=== PATIENT | female | born 1960 | race Caucasian/White ===

== ENCOUNTER → 2017-03-16 | Outpatient (CLI) | payer OTHER ==
--- NOTE | 2017-03-16 16:07 | WOMENS IMAGING REPORT ---
EXAM DESCRIPTION: BILAT SCREENING MAMMO W/CAD COMPLETED DATE/TIME: 03/16/2017 9:58 am REASON FOR STUDY: ROUTINE SCREENING; Z12.31 Z12.31 ENCNTR SCREEN MAMMOGRAM FOR MALIGNANT NEOPLASM O F MIRELA COMPARISON: 07/02/2010 TECHNIQUE: Standard craniocaudal and mediolateral oblique views of each breast recorded using Flipswapa l acquisition. LIMITATIONS: None. FINDINGS: No masses, calcifications or architectural distortion. No areas of suspicion. Read with the assistance of CAD. .[facility] - R2 Cenova Version 1.3 .[facility] - R2 Cenova Version 1.3 .[facility] - R2 Cenova Version 2.4 .[facility] - R2 Cenova Version 2.4 .[facility] - R2 Financial Director Version 9.2 IMPRESSION: NORMAL MAMMOGRAM. BIRADS 1. BREAST DENSITY: a. The breasts are almost entirely fatty. BIRAD: 1 NEGATIVE RECOMMENDATION: ROUTINE SCREENING COMMENT: The patient has been notified of the results by letter per [place] requirements. Additional no tification policies are in place for contacting patient with suspicious or incomplete findings. Quality ID #[id number]: The [employer] recommends an annual screening mammogram for women aged 40 years or over. This facility utilizes a reminder system to ensure that all patients receive reminder letters, and/or direct phone calls for appointments. This includes reminders for routine scr eening mammograms, diagnostic mammograms, or other Breast Imaging Interventions when appropriate. Th is patient will be placed in the appropriate reminder system. The [employer] (A[employer]) has developed recommendations for screening MRI of the breast s in certain patient populations, to be used in conjunction with mammography. Breast MRI surveillanc e may be appropriate for women with more than 20% lifetime risk of developing breast cancer as deter mined by genetic testing, significant family history of the disease, or history of mantle radiation f or Hodgkins Disease. ACR Practice Guidelines 2008. TECHNICAL DOCUMENTATION: FINDING NUMBER: (1) ASSESSMENT: (1) JOB ID: [id number] [employer]- All Rights Reserved
== END ==
LOC: WI 09:20
DX: Z12.31 Encounter for screening mammogram for malignant neoplasm of breast (principal)
CPT/HCPCS: 77067; G0202

== ENCOUNTER 2018-04-30 16:40 | Emergency (ER) | payer SELFPAY ==
--- NOTE | 2018-04-30 16:58 | ER Document Report ---
ED Medical Screen (RME) - General Mode of Arrival: Ambulatory Information source: Patient TRAVEL OUTSIDE OF THE [place] IN LAST 30 DAYS: No - HPI Onset: Last week <VIDHYA WELDON - Last Filed: 04/30/18 17:24> <STEPHANIE RESENDIZ - Last Filed: 04/30/18 17:34> - General Chief Complaint: Leg Pain Stated Complaint: LEG PAIN Time Seen by Provider: 04/30/18 16:53 Notes: Patient is a 57 year old female with a history of cellulitis, psoriasis, MRSA presents to the emergency department complaining of right leg pain, swelling and redness onset 1 week ago. Patient states she began to pick at a plaque from her psoriasis and noticed the symptoms afterwards. Patient states she has been attempting to keep her foot elevated. Patient also complains of intermittent fevers. GENERAL: Alert, interacts well. No acute distress. HEAD: Normocephalic, Atraumatic. NECK: Full range of motion. Supple. Trachea midline. LUNGS: Clear to auscultation bilaterally, no wheezes, rales, or rhonchi. No respiratory distress. HEART: Regular rate and rhythm. No murmurs, gallops, or rubs. ABDOMEN: Soft, non-tender. Non-distended. Bowel sounds present in all 4 quadrants. EXTREMITIES: Moves all four extremities spontaneously. Swelling to the right lower extremity. Erythema to the RLE til about the calf anteriorly, some erythema posteriorly. Area of warmth on the right leg proximally. Dorsal aspect of right ankle contains erythema and plaquing which is tender to palpation. PSYCH: Normal affect, normal mood. I have greeted and performed a rapid initial assessment of this patient. A comprehensive ED assessment and evaluation of the patient, analysis of test results and completion of the medical decision making process will be conducted by additional ED providers. (VIDHYA WELDON) Patient does have a history of DVT previously. 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 Correction describe exam erythema to the right lower extremity goes to about residential up the west anteriorly. Right leg is warm but the distal aspect is hot to the touch. (STEPHANIE RESENDIZ) - Related Data Allergies/Adverse Reactions: Penicillins Allergy (Unknown, Verified 05/26/13 09:14) Past Medical History - Social History Chew tobacco use (# tins/day): No Frequency of alcohol use: None Drug Abuse: None - Past Medical History Cardiac Medical History: Reports: Hx Hypertension - not currently on meds Renal/ Medical History: Denies: Hx Peritoneal Dialysis GI Medical History: Reports: Hx Gastroesophageal Reflux Disease Past Surgical History: Reports: Hx Gastric Bypass Surgery, Hx Tonsillectomy, Hx Tubal Ligation - Immunizations Hx Diphtheria, Pertussis, Tetanus Vaccination: Yes <VIDHYA WELDON - Last Filed: 04/30/18 17:24> - Vital signs Vitals: Temp Pulse Resp BP Pulse Ox 98.0 F 94 22 H 142/80 H 96 04/30/18 16:46 04/30/18 16:46 04/30/18 16:46 04/30/18 16:46 04/30/18 16:46 Course - Laboratory Result Diagrams: 04/30/18 17:03 04/30/18 17:03 <VIDHYA WELDON - Last Filed: 04/30/18 17:24> - Laboratory Result Diagrams: 04/30/18 17:03 04/30/18 17:03 <STEPHANIE RESENDIZ - Last Filed: 04/30/18 17:34> - Vital Signs Vital signs: Temp Pulse Resp BP Pulse Ox 98.0 F 94 22 H 142/80 H 96 04/30/18 16:46 04/30/18 16:46 04/30/18 16:46 04/30/18 16:46 04/30/18 16:46 - Laboratory Laboratory results interpreted by me: 04/30/18 17:03 RDW 14.1 H Doctor's Discharge <VIDHYA WELDON - Last Filed: 04/30/18 17:24> <STEPHANIE RESENDIZ - Last Filed: 04/30/18 17:34> - Discharge Referrals: [facility] [Primary Care Provider] - Follow up as needed
[2018-04-30 17:20] LABS: ABSOLUTE BASOPHILS # (AUTO) 0.1 10^3/uL (0.0-0.2); ABSOLUTE EOSINOPHILS # (AUTO) 0.1 10^3/uL (0.0-0.6); ABSOLUTE LYMPHOCYTES (AUTO) 2.4 10^3/uL (0.5-4.7); ABSOLUTE MONOCYTES (AUTO) 0.8 10^3/uL (0.1-1.4); ABSOLUTE NEUT (AUTO) 4.7 10^3/uL (1.7-8.2); BASOPHILS % (AUTO) 0.7 % (0-2); EOSINOPHILS % (AUTO) 1.6 % (0-6); HEMATOCRIT 41.9 % (36.0-47.0); HEMOGLOBIN 14.1 g/dL (12.0-15.5); LYMPHOCYTES % (AUTO) 29.5 % (13-45); MEAN CORPUSCULAR HEMOGLOBIN 30.1 pg (27.0-33.4); MEAN CORPUSCULAR HGB CONC 33.7 g/dL (32.0-36.0); MEAN CORPUSCULAR VOLUME 90 fl (80-97); MONOCYTES % (AUTO) 9.7 % (3-13); PLATELET COUNT 217 10^3/uL (150-450); RED BLOOD COUNT 4.69 10^6/uL (3.72-5.28); RED CELL DISTRIBUTION WIDTH 14.1 % (11.5-14.0); SEGMENTED NEUTROPHILS % (AUTO) 58.5 % (42-78); TOTAL CELLS COUNTED % (AUTO) 100 %
[2018-04-30 17:24] LABS: INTERNATIONAL RATION (INR) 0.94
[2018-04-30 17:25] LABS: PARTIAL THROMBOPLASTIN TIME 30.1 SEC (23.5-35.8)
[2018-04-30 17:36] LABS: ALANINE AMINOTRANSFERASE 19 U/L (9-52); ALKALINE PHOSPHATASE 104 U/L (38-126); ANION GAP 12 (5-19); ASPARTATE AMINO TRANSFERASE 17 U/L (14-36); BILIRUBIN,DIRECT 0.3 mg/dL (0.0-0.4); BILIRUBIN,TOTAL 0.8 mg/dL (0.2-1.3); BLOOD UREA NITROGEN 24 mg/dL (7-20); CALCIUM 9.2 mg/dL (8.4-10.2); CARBON DIOXIDE 30 mmol/L (22-30); CHLORIDE 103 mmol/L (98-107); GLUCOSE 58 mg/dL (75-110); POTASSIUM 4.4 mmol/L (3.6-5.0); TOTAL PROTEIN 6.9 g/dL (6.3-8.2)
--- NOTE | 2018-04-30 18:11 | ER Document Report ---
ED General - General Mode of Arrival: Ambulatory Information source: Patient TRAVEL OUTSIDE OF THE [place] IN LAST 30 DAYS: No <VIDHYA WELDON - Last Filed: 04/30/18 18:12> - General Mode of Arrival: Ambulatory TRAVEL OUTSIDE OF THE [place] IN LAST 30 DAYS: No <ABELORIANASTEPHANIE - Last Filed: 04/30/18 20:00> - General Chief Complaint: Leg Pain Stated Complaint: LEG PAIN Time Seen by Provider: 04/30/18 16:53 Notes: Patient is a 57 year old female with a history of cellulitis, psoriasis, MRSA presents to the emergency department complaining of right leg pain, swelling and redness onset 1 week ago. Patient states she began to pick at a plaque from her psoriasis and noticed the symptoms afterwards. Patient states she has been attempting to keep her foot elevated. Patient also complains of intermittent fevers. Patient does have a history of DVT previously. 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 (VIDHYA WELDON) - Related Data Allergies/Adverse Reactions: Penicillins Allergy (Unknown, Verified 05/26/13 09:14) Past Medical History - General Information source: Patient - Social History Smoking Status: Never Smoker Chew tobacco use (# tins/day): No Frequency of alcohol use: None Drug Abuse: None Family History: Reviewed & Not Pertinent Patient has suicidal ideation: No Patient has homicidal ideation: No - Past Medical History Cardiac Medical History: Reports: Hx Hypertension GI Medical History: Reports: Hx Gastroesophageal Reflux Disease Past Surgical History: Reports: Hx Gastric Bypass Surgery, Hx Tonsillectomy, Hx Tubal Ligation - Immunizations Hx Diphtheria, Pertussis, Tetanus Vaccination: Yes <VIDHYA WELDON - Last Filed: 04/30/18 18:12> - General Information source: Patient - Social History Smoking Status: Never Smoker Chew tobacco use (# tins/day): No Frequency of alcohol use: None Drug Abuse: None Family History: Reviewed & Not Pertinent Patient has suicidal ideation: No Patient has homicidal ideation: No - Past Medical History Cardiac Medical History: Reports: Hx Hypertension - not currently on meds Renal/ Medical History: Denies: Hx Peritoneal Dialysis GI Medical History: Reports: Hx Gastroesophageal Reflux Disease Past Surgical History: Reports: Hx Gastric Bypass Surgery, Hx Tonsillectomy, Hx Tubal Ligation - Immunizations Hx Diphtheria, Pertussis, Tetanus Vaccination: Yes <STEPHANIE RESENDIZ - Last Filed: 04/30/18 20:00> Review of Systems - Review of Systems Constitutional: No symptoms reported EENT: No symptoms reported Cardiovascular: No symptoms reported Respiratory: No symptoms reported Gastrointestinal: No symptoms reported Genitourinary: No symptoms reported Female Genitourinary: No symptoms reported Musculoskeletal: See HPI Skin: See HPI Hematologic/Lymphatic: No symptoms reported Neurological/Psychological: No symptoms reported -: Yes All other systems reviewed and negative <VIDHYA WELDON - Last Filed: 04/30/18 18:12> Physical Exam <VIDHYA WELDON - Last Filed: 04/30/18 18:12> <STEPHANIE RESENDIZ - Last Filed: 04/30/18 20:00> - Vital signs Vitals: Temp Pulse Resp BP Pulse Ox 98.0 F 94 22 H 142/80 H 96 04/30/18 16:46 04/30/18 16:46 04/30/18 16:46 04/30/18 16:46 04/30/18 16:46 - Notes Notes: GENERAL: Alert, interacts well. No acute distress. HEAD: Normocephalic, Atraumatic. NECK: Full range of motion. Supple. Trachea midline. LUNGS: Clear to auscultation bilaterally, no wheezes, rales, or rhonchi. No respiratory distress. HEART: Regular rate and rhythm. No murmurs, gallops, or rubs. ABDOMEN: Soft, non-tender. Non-distended. Bowel sounds present in all 4 quadrants. EXTREMITIES: Moves all four extremities spontaneously. Swelling to the right lower extremity. Erythema to the RLE to about fci up the west anterioly. Some erythema posteriorly. Right leg is warm but the distal aspect is hot to the touch. Dorsal aspect of right ankle contains erythema and plaquing which is tender to palpation. PSYCH: Normal affect, normal mood. (VIDHYA WELDON) Course - Laboratory Result Diagrams: 04/30/18 17:03 04/30/18 17:03 <VIDHYA WELDON - Last Filed: 04/30/18 18:12> - Laboratory Result Diagrams: 04/30/18 17:03 04/30/18 17:03 <STEPHANIE RESENDIZ - Last Filed: 04/30/18 20:00> - Re-evaluation Re-evalutation: 04/30/18 18:09 CBC unremarkable, coags normal, CMP unremarkable, venous duplex ultrasound of the right lower extremity negative for DVT. Likely represent cellulitis, I will start the patient on Keflex by mouth and discharged home. Encouraged to elevate the leg, use Barney wraps and follow-up with primary care physician in the next 3-5 days for recheck. (STEPHANIE RESENDIZ) - Vital Signs Vital signs: Temp Pulse Resp BP Pulse Ox 98.5 F 90 20 140/80 H 96 04/30/18 18:28 04/30/18 18:28 04/30/18 18:28 04/30/18 18:28 04/30/18 18:28 - Laboratory Laboratory results interpreted by me: 04/30/18 04/30/18 17:03 17:03 RDW 14.1 H BUN 24 H Glucose 58 L Discharge <VIDHYA WELDON - Last Filed: 04/30/18 18:12> <STEPHANIE RESENDIZ - Last Filed: 04/30/18 20:00> - Discharge Clinical Impression: Cellulitis of right leg Condition: Stable Disposition: HOME, SELF-CARE Additional Instructions: Cellulitis You have an infection of your skin and underlying soft tissues called cellulitis. This is due to bacteria, which can enter through any break in the skin, or even through an irritated hair follicle. Untreated, cellulitis will usually worsen. Antibiotics are required. Usually, warm packs or warm soaks, and elevation of the infected area are recommended. You should start getting better within 24 to 36 hours. Most infections respond quickly to the right medication. Follow-up care is important, however, to check for abscess (boil) formation, unsuspected foreign body, or resistant infection. Please take the antibiotic as directed until it is gone. Please keep the leg elevated and wrapped an Barney wrap to help healing. Please use a moisturizing lotion to prevent breaks in the skin that may introduce other bacteria. If you develop fever, chills, or if the area of infection is becoming rapidly more swollen or painful, call the doctor at once. Prescriptions: Cephalexin Monohydrate [Keflex 500 mg Capsule] 500 mg PO Q6H 7 Days capsule Referrals: [facility] [NO LOCAL MD] - Follow up as needed Scribe Attestation: 04/30/18 20:00 I personally performed the services described in the documentation, reviewed and edited the documentation which was dictated to the scribe in my presence, and it accurately records my words and actions. (STEPHANIE RESENDIZ) Scribe Documentation - Scribe Written by Scribe:: Denice Arias, 04/30/2018 18:16 acting as scribe for :: Marily <VIDHYA WELDON - Last Filed: 04/30/18 18:12>
[2018-04-30 18:29] VITALS: BP 140/80
--- NOTE | 2018-05-01 10:35 | XCELERA REPORT ---
[address] [address] Lower Extremity Venous Evaluation Name: SHANTE GIRALDO Age: 57 yrs Gender: Female : 1960 Patient Status: Preadmit Patient Location: ER Study Date: 04/30/2018 05:52 PM Procedure: Color flow and duplex imaging of the veins of the right lower extremity as well as the left Common Femoral vein. Reason For Study: right leg redness and swelling, h/o DVT Ordering Physician: STEPHANIE RESENDIZ Performed By: Donnie Balbuena Right Sided Venous Evaluation Normal vessel filling wall to wall, compression and augmentation as well as Colour flow down to the infrageniculate veins. Left Sided Venous Evaluation The left common femoral vein is fully compressible. Spontaneous and phasic flow is present in the left common femoral vein. Interpretation Summary No duplex evidence of DVT or obstruction in the right lower extremity nor in the left Common Femoral vein. : STEPHANIE RESENDIZ > Juan Burns
== END 2018-04-30 18:27 | disposition home or self-care (01) ==
LOC: ER 16:40
DX: L03.115 Cellulitis of right lower limb (principal); L40.9 Psoriasis, unspecified; R50.9 Fever, unspecified; I10 Essential (primary) hypertension; Z86.14 Personal history of Methicillin resistant Staphylococcus aureus infection; Z98.84 Bariatric surgery status; Z86.718 Personal history of other venous thrombosis and embolism; Z88.0 Allergy status to penicillin
CPT/HCPCS: 36415; 80053; 85025; 85610; 85730; 93971; 99284

== ENCOUNTER → 2020-06-13 | Outpatient (CLI) | payer SELFPAY ==
[2020-06-13 08:27] LABS: ABSOLUTE EOSINOPHILS # (AUTO) 0.1 10^3/uL (0.0-0.6); ABSOLUTE LYMPHOCYTES (AUTO) 2.7 10^3/uL (0.5-4.7); ABSOLUTE MONOCYTES (AUTO) 0.7 10^3/uL (0.1-1.4); ABSOLUTE NEUT (AUTO) 5.1 10^3/uL (1.7-8.2); BASOPHILS % (AUTO) 0.5 % (0-2); EOSINOPHILS % (AUTO) 1.7 % (0-6); HEMATOCRIT 41.4 % (36.0-47.0); HEMOGLOBIN 14.1 g/dL (12.0-15.5); LYMPHOCYTES % (AUTO) 31.1 % (13-45); MEAN CORPUSCULAR HEMOGLOBIN 29.5 pg (27.0-33.4); MEAN CORPUSCULAR HGB CONC 33.9 g/dL (32.0-36.0); MEAN CORPUSCULAR VOLUME 87 fl (80-97); MONOCYTES % (AUTO) 8.6 % (3-13); PLATELET COUNT 238 10^3/uL (150-450); RED BLOOD COUNT 4.77 10^6/uL (3.72-5.28); RED CELL DISTRIBUTION WIDTH 14.7 % (11.5-14.0); SEGMENTED NEUTROPHILS % (AUTO) 58.1 % (42-78); TOTAL CELLS COUNTED % (AUTO) 100 %; WHITE BLOOD COUNT 8.7 10^3/uL (4.0-10.5)
[2020-06-13 08:31] LABS: APPEARANCE,URINE SLIGHTLY-CLOUDY; BILIRUBIN,URINE NEGATIVE (NEGATIVE); COLOR,URINE YELLOW; GLUCOSE, URINE NEGATIVE (NEGATIVE); KETONES,URINE NEGATIVE (NEGATIVE); LEUKOCYTE ESTERASE,URINE SMALL (NEGATIVE); NITRITE,URINE NEGATIVE (NEGATIVE); PROTEIN,URINE NEGATIVE (NEGATIVE); URINE SPECIFIC GRAVITY 1.019; UROBILINOGEN,URINE NEGATIVE mg/dL (<2.0)
[2020-06-13 08:48] LABS: ALKALINE PHOSPHATASE 125 U/L (38-126); ANION GAP 8 (5-19); ASPARTATE AMINO TRANSFERASE 17 U/L (14-36); BILIRUBIN,DIRECT 0.3 mg/dL (0.0-0.4); BILIRUBIN,TOTAL 0.9 mg/dL (0.2-1.3); BLOOD UREA NITROGEN 21 mg/dL (7-20); CALCIUM 9.3 mg/dL (8.4-10.2); CARBON DIOXIDE 31 mmol/L (22-30); CHLORIDE 99 mmol/L (98-107); CHOLESTEROL 179.85 mg/dL (0-200); GLUCOSE 105 mg/dL (75-110); POTASSIUM 4.3 mmol/L (3.6-5.0); TRIGLYCERIDES 68 mg/dL (<150)
[2020-06-13 08:59] LABS: DIRECT LDL 123 mg/dL (<100)
== END ==
LOC: CCC 07:14
PROVIDERS: ATTEND Family Medicine
DX: I10 Essential (primary) hypertension (principal); R32 Unspecified urinary incontinence
CPT/HCPCS: 36415; 80053; 80061; 81001; 83036; 84443; 85025